=== PATIENT | male | born 2005 | race Caucasian/White ===

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

== ENCOUNTER 2024-05-15 14:02 | Emergency (ER) | payer OTHER, SELFPAY ==
[2024-05-15 14:03] VITALS: BP 149/71; PULSE 105; RESP 16; TEMP 36.6; O2SAT 99; BMI 25.1
[2024-05-15 15:53] VITALS: O2SAT 100
[2024-05-15 16:02] VITALS: BP 131/102; PULSE 100; O2SAT 99
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
[2024-05-15] MEDS: Ibuprofen 600 MG Tablet PO (16:11)
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
--- NOTE | 2024-05-15 16:18 | RAD_ITS ---
PROCEDURE: CHEST PA AND LATERAL REASON FOR EXAM: COUGH. CHEST PAIN. CODE. TECHNIQUE: Frontal and lateral views of the chest. COMPARISON: None. FINDINGS: The heart size is normal. The mediastinal contour is unremarkable. Hilar old healed granulomatous changes. The lungs are clear. Mild hyperaeration. The bones are unremarkable. RAD/Chest PA and Lateral IMPRESSION: NO ACTIVE CARDIOPULMONARY DISEASE. MILD HYPERAERATION. Reading Location: [facility]
[2024-05-15] MEDS: Acetaminophen 500 MG Tablet 1000 MG PO (17:09)
[2024-05-15 17:37] VITALS: BP 128/78; PULSE 100; RESP 16; TEMP 37.7; O2SAT 99
== END 2024-05-15 17:38 | disposition home or self-care (01) ==
PROVIDERS: Emergency Provider Emergency Medicine; PCP Pediatrics; Visit Provider Emergency Medicine
DX: S80.811A Abrasion, right lower leg, initial encounter (principal); V53.6XXA Passenger in pick-up truck or van injured in collision with car, pick-up truck or van in traffic accident, initial encounter
CPT/HCPCS: 71046; 73590; 87631; 99283; A4216